=== PATIENT | female | born 1945 | race Caucasian/White ===

== ENCOUNTER 2017-03-10 20:13 | Emergency (ER) | payer MEDICARE ==
--- NOTE | 2017-03-10 20:35 | ED ---
HPI Chest Pain - HPI Summary HPI Summary: 72 yr old female with pressure in chest, 04/25, radiates into her neck and arms. She has had symptoms for six hours. She denies dizziness, palpitations, diaphoresis. She has had some SOB, and feel fatigued. No other complaints. - History of Current Complaint Chief Complaint: UCChestPain Time Seen by Provider: 03/10/17 20:18 - Allergy/Home Medications Allergies/Adverse Reactions: Allergies Allergy/AdvReac Type Severity Reaction Status Date / Time Codeine Allergy Unknown Verified 03/10/17 20:32 Reaction Details Erythromycin Allergy Unknown Verified 03/10/17 20:32 Reaction Details Meperidine [From Demerol HCl] Allergy Unknown Verified 03/10/17 20:32 Reaction Details Mercury Allergy Unknown Verified 03/10/17 20:32 Reaction Details Morphine Allergy Unknown Verified 03/10/17 20:32 Reaction Details Sulfa Antibiotics Allergy Unknown Verified 03/10/17 20:32 Reaction Details PMH/Surg Hx/FS Hx/Imm Hx Endocrine/Hematology History: Reports: Hx Thyroid Disease - hypo Denies: Hx Diabetes Cardiovascular History: Reports: Hx Hypertension Denies: Hx Congestive Heart Failure Comment Only: Other Cardiovascular Problems/Disorders - COUGH FOR 10 DAYS Respiratory History: Reports: Hx Asthma Denies: Hx Chronic Obstructive Pulmonary Disease (COPD) GI History: Denies: Hx Ulcer - Surgical History Surgery Procedure, Year, and Place: hysterectomy,miscarriage,overectomy,sinus, carpal tunnel,osteoperosis,asthma,fusion of 4,5,6 vert., fibromyalgia, breast reduction,rotator cuff repair Infectious Disease History: Denies: Hx Clostridium Difficile, Hx Hepatitis, Hx Human Immunodeficiency Virus (HIV), Hx of Known/Suspected MRSA, Hx Shingles, Hx Tuberculosis, Hx Known/ Suspected VRE, Hx Known/Suspected VRSA, History Other Infectious Disease - Social History Alcohol Use: None Substance Use Type: Reports: None Smoking Status (MU): Never Smoked Tobacco Review of Systems Constitutional: Negative Eyes: Negative ENT: Negative Positive: Chest Pain Positive: Shortness Of Breath All Other Systems Reviewed And Are Negative: Yes Physical Exam Triage Information Reviewed: Yes Vital Signs Reviewed: Yes Appearance: Positive: Well-Appearing, No Pain Distress Skin: Positive: Warm Head/Face: Positive: Normal Head/Face Inspection Eyes: Positive: Normal, EOMI ENT: Positive: Normal ENT inspection Neck: Positive: Supple Respiratory/Lung Sounds: Positive: Clear to Auscultation, Breath Sounds Present Cardiovascular: Positive: Normal, Tachycardia Abdomen Description: Positive: Nontender Musculoskeletal: Positive: Normal, Strength/ROM Intact Neurological: Positive: Normal, Sensory/Motor Intact, Alert, Oriented to Person Place, Time, CN Intact II-III Psychiatric: Positive: Normal Chest Pain Course/Dx - Course Course Of Treatment: Discussed with Dr Garcia at [facility] where the patient requests to be transferred. She accepts the patient. - Diagnoses Provider Diagnoses: Chest pain, SVT (supraventricular tachycardia) Discharge - Discharge Plan Condition: Fair Disposition: TRANS HIGHER LVL OF CARE FAC
[2017-03-10 20:41] VITALS: BP 117/71
== END 2017-03-10 21:00 | disposition short-term general hospital (02) ==
LOC: UCCORT 20:13
DX: R07.9 Chest pain, unspecified (principal); I47.1 Supraventricular tachycardia; Z88.5 Allergy status to narcotic agent; Z88.2 Allergy status to sulfonamides
CPT/HCPCS: 93005; 99213; G0463

== ENCOUNTER 2017-11-17 18:11 | Emergency (ER) | payer MEDICARE ==
[2017-11-17 20:01] VITALS: BP 151/91
--- NOTE | 2017-11-17 20:35 | UC ---
Cardiac HPI - HPI Summary HPI Summary: 2 days ago leaned over a sink and felt a sudden sharp pop in right sternal area- --Has had pain with inspiration, palpation and cough - History of Current Complaint Chief Complaint: UCGeneralIllness Stated Complaint: POSSIBLE RIB INJURY Time Seen by Provider: 11/17/17 19:54 Hx Obtained From: Patient Onset/Duration: Sudden Onset, Lasting Days - 2, Still Present Timing: Constant Initial Severity: Moderate Current Severity: Moderate Chest Pain Location: Lower Sternal - right Aggravating Factor(s): Deep Breaths Alleviating Factor(s): Other - tylenol Associated Signs & Symptoms: Positive: Negative - Allergy/Home Medications Allergies/Adverse Reactions: Allergies Allergy/AdvReac Type Severity Reaction Status Date / Time Codeine Allergy Unknown Verified 11/17/17 20:01 Reaction Details Erythromycin Allergy Unknown Verified 11/17/17 20:01 Reaction Details Meperidine [From Demerol HCl] Allergy Unknown Verified 11/17/17 20:01 Reaction Details Mercury Allergy Unknown Verified 11/17/17 20:01 Reaction Details Morphine Allergy Unknown Verified 11/17/17 20:01 Reaction Details Sulfa Antibiotics Allergy Unknown Verified 11/17/17 20:01 Reaction Details Home Medications: Home Medications Ibuprofen TAB* [Advil TAB*] 400 mg PO ONCE 11/17/17 [History Confirmed 11/17/17] PMH/Surg Hx/FS Hx/Imm Hx Previously Healthy: Yes Endocrine History: Hypothyroidism Cardiovascular History: Cardiac Disease GI/ History: Gastroesophageal Reflux - Surgical History Surgical History: Yes Surgery Procedure, Year, and Place: hysterectomy,miscarriage,overectomy,sinus, carpal tunnel,osteoperosis,asthma,fusion of 4,5,6 vert., fibromyalgia, breast reduction,rotator cuff repair - Family History Known Family History: Positive: None - Social History Occupation: Retired Lives: With Family Alcohol Use: None Substance Use Type: None Smoking Status (MU): Never Smoked Tobacco - Immunization History Most Recent Influenza Vaccination: [id number] Most Recent Pneumonia Vaccination: 2017 Review of Systems Constitutional: Negative Skin: Negative Eyes: Negative ENT: Negative Respiratory: Negative Cardiovascular: Chest Pain - with cough and deep breath Gastrointestinal: Negative Genitourinary: Negative Motor: Negative Neurovascular: Negative Musculoskeletal: Negative, Arthralgia Neurological: Negative Psychological: Negative Is Patient Immunocompromised?: No All Other Systems Reviewed And Are Negative: Yes Physical Exam Triage Information Reviewed: Yes Appearance: Well-Appearing, Well-Nourished, Pain Distress - mild Vital Signs: Initial Vital Signs Temp 97.9 F 11/17/17 19:54 Pulse 60 11/17/17 19:54 Resp 17 11/17/17 19:54 BP 151/91 11/17/17 19:54 Pulse Ox 97 11/17/17 19:54 Vital Signs Reviewed: Yes Eye Exam: Normal Eyes: Positive: Conjunctiva Clear ENT Exam: Normal ENT: Positive: Normal ENT inspection, Hearing grossly normal, Pharynx normal, Uvula midline. Negative: Nasal congestion, Nasal drainage, TMs normal, Tonsillar swelling, Tonsillar exudate, Trismus, Muffled voice, Hoarse voice, Sinus tenderness Dental Exam: Normal Neck exam: Normal Neck: Positive: Supple, Nontender, No Lymphadenopathy Respiratory Exam: Normal Respiratory: Positive: Chest non-tender, Lungs clear, Normal breath sounds, No respiratory distress, No accessory muscle use Cardiovascular Exam: Normal Cardiovascular: Positive: RRR, No Murmur, Pulses Normal, Brisk Capillary Refill Musculoskeletal Exam: Normal Musculoskeletal: Positive: Strength Intact, ROM Intact, No Edema Neurological Exam: Normal Neurological: Positive: Alert, Muscle Tone Normal Psychological Exam: Normal Skin Exam: Normal Diagnostics - Radiology No standard instances Xray Interpretation: No Acute Changes Radiology Interpretation Completed By: ED Physician, Radiologist - Assessment/Plan Course Of Treatment: compression, ice, pain med, follow with pcp - Clinical Impression Provider Diagnoses: Rib Contusion right sternal boarder, Hypertension in poor control Discharge - Discharge Plan Condition: Stable Disposition: HOME Prescriptions: Ibuprofen TAB* [Motrin TAB* 800 MG] 800 mg PO Q8H PRN #30 tab PRN Reason: Pain - Moderate Methocarbamol TAB* [Robaxin 500 MG TAB*] 500 mg PO TID PRN #30 tab PRN Reason: pain Patient Education Materials: Hypertension (ED), Rib Contusion (ED) Referrals: Non Staff,Doctor [Primary Care Provider] - Additional Instructions: Follow with primary care doctor for rib and blood pressure recheck
[2017-11-17] MEDS ORDERED: Acetaminophen TAB* 325 MG PO ONE (22:29)
--- NOTE | 2017-11-18 07:23 | RAD ---
INDICATION: Sternum trauma. TECHNIQUE: 2 views of the sternum were obtained. FINDINGS: The bones are in normal alignment. No fracture is seen. IMPRESSION: NO EVIDENCE FOR FRACTURE, IF THE PATIENT'S SYMPTOMS PERSIST RECOMMEND FOLLOW-UP IMAGING.
--- NOTE | 2017-11-18 07:27 | RAD ---
INDICATION: Right rib injury. COMPARISON: Comparison is made with a prior chest x-ray study from July 05, 2014. TECHNIQUE: 4 views of the right ribs and dual-energy PA views of the chest were obtained. FINDINGS: No acute fracture or significant focal osseous abnormality is seen. The heart is within normal limits in size. The lungs are clear. No pleural effusion or pneumothorax is seen. 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 IMPRESSION: NO EVIDENCE FOR ACUTE FRACTURE.
== END 2017-11-17 22:34 | disposition home or self-care (01) ==
LOC: UCCORT 18:11
DX: S20.219A Contusion of unspecified front wall of thorax, initial encounter (principal); X50.1XXA Overexertion from prolonged static or awkward postures, initial encounter; Y93.89 Activity, other specified; Y92.9 Unspecified place or not applicable; I10 Essential (primary) hypertension; E03.9 Hypothyroidism, unspecified; I51.9 Heart disease, unspecified; K21.9 Gastro-esophageal reflux disease without esophagitis; Z88.1 Allergy status to other antibiotic agents; Z88.5 Allergy status to narcotic agent; Z88.2 Allergy status to sulfonamides
CPT/HCPCS: 71120; 99212; A9270-GY; G0463

== ENCOUNTER 2019-11-14 11:13 | Emergency (ER) | payer MEDICARE ==
--- OUTSIDE RECORDS SUMMARY | 2019-11-14 11:23 | XMS REPORT | Continuity of Care Document ---
:1945 External Reference #:[id number] Author Name MC Valdez (transmitted by agent of provider April Bernal) Address [address] [place] [address] Care Team Providers Name Role Phone Feliciano Kraus M.D. 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 Onset: 11/26/2017 Uncomplicated moderate persistent asthma April Bernal M.D. Onset: 09/30 Allergic rhinitis due to animals April Bernal M.D. Onset: 09/30/2016 Exacerbation of asthma EMILY Morocho Onset: 10/26/2014 Acute upper respiratory infection of EMILY Morocho Onset: 10/26/2014 multiple sites Allergic rhinitis due to pollen Letty Dhaliwal M.D. Onset: 08/04/2013 Allergic rhinitis Letty Dhaliwal M.D. Onset: 08/04/2013 Allergic asthma without status asthmaticus Colby Villagran M.D. Onset: 2011 Social History Type Date Description Comments Sex Unknown Tobacco Use Start: Unknown Patient has never smoked Allergies, Adverse Reactions, Alerts Active Allergies Reaction Severity Comments Date Sulfa 06/16/2013 Erythromycin 06/16/2013 Morphine 08/04/2013 Codeine 08/04/2013 Demerol Nausea and Vomiting Mild 10/05/2014 Oxycodone hallucinations 09/30/2016 Percocet hallucinations 09/30/2016 Mercury bleeding 09/30/2016 Augmentin heart palpitations 10/16/2016 Amoxicillin vomitting and headache 09/13/2019 Medications Active Medications SIG Qnty Indications Ordering Date Provider Azithromycin take 2 tabs day 6tabs Mildred Mckeonmond, 09/13/2019 250mg one and one tab a [employer] Tablets day for next 4 days. per Patient she has taken and tolerated many times Amoxicillin take 1 tablet 14tabs Mildred Mckeonmond, 09/08/2019 500mg every 12 hours x [employer] Tablets 10 Prednisone take 2 tab a day 6tabs Mildred Mckeonmond, 09/08/2019 20mg Tablets for 3 days. Take [employer] with food- prefert take in morning Breo Ellipta 1 puff inhaled 28units J01.00 Mildred Rousseau, 09/08/2019 once daily [employer] 200-25mcg/Inh Aerosol Primidone Unknown 50mg Tablets Claritin 1 by mouth every Unknown 10mg Capsules day Vitamin D Unknown (Ergocalciferol) [id number] Capsules Mobic Unknown 15mg Tablets Albuterol Sulfate Unknown (2.5mg/3ML) 0.083% Nebulizer Bupropion HCL Unknown 100mg Tablets Vitamin E-400 one tab daily. Unknown 400Unit Capsules Senna Unknown Tablets Meloxicam 1 by mouth every Unknown 15mg Tablets day Spiriva Respimat 2 puffs once 4gm Mildred Rousseau, daily [employer] 1.25mcg/Act Aerosol Lipitor once a day Unknown 40mg Tablets Proair Respiclick 2 puffs every 4 1units Belén Dussing, hours as needed [employer] 108(90Base) mcg/Act for cough, wheeze Aerosol or shortness of breath Amitriptyline HCL once a day Unknown 50mg Tablets Omeprazole 1 by mouth every 90caps Unknown 10mg day Capsules DR Synthroid Unknown 112mcg Tablets Lyrica Unknown 100mg Capsules Medications Administered in Office Medication SIG Qnty Indications Ordering Provider Date Injection Allergy Injection 09/01/2019 Injection Injection Allergy Injection 07/07/2019 Injection Injection Allergy Injection 06/02/2019 Injection Injection Allergy Injection 05/12/2019 Injection Injection Allergy Injection 04/21/2019 Injection Injection Allergy Injection 04/14/2019 Injection Injection Allergy Injection 03/17/2019 Injection Injection Allergy Injection 03/03/2019 Injection Injection Allergy Injection 02/17/2019 Injection Injection Allergy Injection 02/10/2019 Injection Injection Allergy Injection 12/02/2018 Injection Injection Allergy Injection 11/11/2018 Injection Injection Allergy Injection 10/14/2018 Injection Injection Allergy Injection 09/16/2018 Injection Injection Allergy Injection 09/02/2018 Injection Injection Allergy Injection 08/12/2018 Injection Injection Allergy Injection 08/05/2018 Injection Injection Allergy Injection 07/22/2018 Injection Injection Allergy Injection 07/15/2018 Injection Injection Allergy Injection 07/01/2018 Injection Injection Allergy Injection 06/10/2018 Injection Injection Allergy Injection 05/20/2018 Injection Injection Allergy Injection 04/29/2018 Injection Injection Allergy Injection 04/01/2018 Injection Injection Allergy Injection 03/18/2018 Injection Injection Allergy Injection 03/04/2018 Injection Injection Allergy Injection 02/11/2018 Injection Injection Allergy Injection 01/28/2018 Injection Injection Allergy Injection 01/07/2018 Injection Injection Allergy Injection 12/24/2017 Injection Injection Allergy Injection 12/08/2017 Injection Injection Allergy Injection 11/26/2017 Injection Injection Allergy Injection 10/27/2017 Injection Injection Allergy Injection 10/15/2017 Injection Injection Allergy Injection 09/24/2017 Injection Injection Allergy Injection 09/03/2017 Injection Injection Allergy Injection 08/20/2017 Injection Injection Allergy Injection 07/23/2017 Injection Injection Allergy Injection 06/11/2017 Injection Injection Nicanor Cui M.D. 05/07/2017 Injection Injection Allergy Injection 05/07/2017 Injection Injection Allergy Injection 04/09/2017 Injection Injection Allergy Injection 03/19/2017 Injection Injection Allergy Injection 02/26/2017 Injection Injection Allergy Injection 02/12/2017 Injection Injection Allergy Injection 01/29/2017 Injection Injection Allergy Injection 01/08/2017 Injection Injection Allergy Injection 01/01/2017 Injection Injection Allergy Injection 12/11/2016 Injection Injection Allergy Injection 11/27/2016 Injection Injection Allergy Injection 11/13/2016 Injection Injection Allergy Injection 10/30/2016 Injection Injection Allergy Injection 10/16/2016 Injection Injection Allergy Injection 09/25/2016 Injection Injection Allergy Injection 09/11/2016 Injection Injection Allergy Injection 09/04/2016 Injection Injection Allergy Injection 08/28/2016 Injection Injection Allergy Injection 08/14/2016 Injection Injection Allergy Injection 07/31/2016 Injection Injection Allergy Injection 07/24/2016 Injection Injection Allergy Injection 07/17/2016 Injection Injection Allergy Injection 07/10/2016 Injection Injection Allergy Injection 07/03/2016 Injection Injection Allergy Injection 06/26/2016 Injection Injection Allergy Injection 06/19/2016 Injection Injection Allergy Injection 05/29/2016 Injection Injection Allergy Injection 05/15/2016 Injection Injection Allergy Injection 04/24/2016 Injection Injection Allergy Injection 04/17/2016 Injection Injection Allergy Injection 04/10/2016 Injection Injection Allergy Injection 04/03/2016 Injection Injection Allergy Injection 03/27/2016 Injection Injection Allergy Injection 03/20/2016 Injection Injection Allergy Injection 02/28/2016 Injection Injection Allergy Injection 02/21/2016 Injection Injection Allergy Injection 02/14/2016 Injection Injection Allergy Injection 01/31/2016 Injection Injection Allergy Injection 01/24/2016 Injection Injection Allergy Injection 01/17/2016 Injection Injection Allergy Injection 01/03/2016 Injection Injection Allergy Injection 12/20/2015 Injection Injection Allergy Injection 12/13/2015 Injection Injection Allergy Injection 12/06/2015 Injection Injection Allergy Injection 11/29/2015 Injection Injection Allergy Injection 11/20/2015 Injection Injection Allergy Injection 11/15/2015 Injection Injection Allergy Injection 11/01/2015 Injection Injection Allergy Injection 10/18/2015 Injection Injection Allergy Injection 10/04/2015 Injection Injection Allergy Injection 09/27/2015 Injection Injection Allergy Injection 09/13/2015 Injection Injection Allergy Injection 09/06/2015 Injection Injection Allergy Injection 08/30/2015 Injection Injection Allergy Injection 08/23/2015 Injection Injection Allergy Injection 08/16/2015 Injection Injection Allergy Injection 08/09/2015 Injection Injection Allergy Injection 08/02/2015 Injection Injection Allergy Injection 07/26/2015 Injection Injection Allergy Injection 07/19/2015 Injection Injection Allergy Injection 07/12/2015 Injection Injection Allergy Injection 06/28/2015 Injection Injection Allergy Injection 06/21/2015 Injection Injection Allergy Injection 06/14/2015 Injection Injection Allergy Injection 06/07/2015 Injection Injection Allergy Injection 05/31/2015 Injection Injection Allergy Injection 05/24/2015 Injection Injection Allergy Injection 05/17/2015 Injection Injection Allergy Injection 05/10/2015 Injection Injection Allergy Injection 05/03/2015 Injection Injection Allergy Injection 04/26/2015 Injection Injection Allergy Injection 04/19/2015 Injection Injection Allergy Injection 04/12/2015 Injection Injection Allergy Injection 04/05/2015 Injection Injection Allergy Injection 03/29/2015 Injection Injection Allergy Injection 03/22/2015 Injection Injection Allergy Injection 03/15/2015 Injection Injection Allergy Injection 03/08/2015 Injection Injection Allergy Injection 03/01/2015 Injection Injection Allergy Injection 02/22/2015 Injection Injection Allergy Injection 02/15/2015 Injection Injection Allergy Injection 02/08/2015 Injection Injection Allergy Injection 01/25/2015 Injection Injection Allergy Injection 01/04/2015 Injection Injection Allergy Injection 12/28/2014 Injection Injection Allergy Injection 12/21/2014 Injection Injection Allergy Injection 12/14/2014 Injection Injection Allergy Injection 12/07/2014 Injection Injection Allergy Injection 11/23/2014 Injection Injection Allergy Injection 10/19/2014 Injection Injection Allergy Injection 10/05/2014 Injection Injection Allergy Injection 09/21/2014 Injection Injection Allergy Injection 09/07/2014 Injection Injection Truman Luis A Ramirez 08/31/2014 Injection Injection Allergy Injection 08/31/2014 Injection Injection Truman Luis A Ramirez 08/24/2014 Injection Injection Allergy Injection 08/24/2014 Injection Injection Truman Luis A Ramirez 08/17/2014 Injection Injection Allergy Injection 08/17/2014 Injection Injection Truman Luis A Ramirez 08/10/2014 Injection Injection Allergy Injection 08/10/2014 Injection Injection Truman Luis A Ramirez 08/03/2014 Injection Injection Allergy Injection 08/03/2014 Injection Injection Truman Luis A Ramirez 07/27/2014 Injection Injection Allergy Injection 07/27/2014 Injection Injection Truman Luis A Ramirez 07/20/2014 Injection Injection Allergy Injection 07/20/2014 Injection Injection Truman Luis A Ramirez 06/15/2014 Injection Injection Allergy Injection 06/15/2014 Injection Injection Truman Luis A Ramirez 06/08/2014 Injection Injection Allergy Injection 06/08/2014 Injection Injection Truman Luis A Ramirez 06/01/2014 Injection Injection Allergy Injection 06/01/2014 Injection Injection Truman Luis A Ramirez 05/25/2014 Injection Injection Allergy Injection 05/25/2014 Injection Injection Truman Luis A Ramirez 05/18/2014 Injection Injection Allergy Injection 05/18/2014 Injection Injection Allergy Injection 05/18/2014 Injection Injection Truman Luis A Ramirez 05/11/2014 Injection Injection Allergy Injection 05/11/2014 Injection Injection Truman Luis A Ramirez 05/04/2014 Injection Injection Allergy Injection 05/04/2014 Injection Injection Allergy Injection 04/27/2014 Injection Injection Truman JamesLuis A jaffe 04/20/2014 Injection Injection Allergy Injection 04/20/2014 Injection Injection Truman Luis A Ramirez 04/13/2014 Injection Injection Allergy Injection 04/13/2014 Injection Injection Truman Luis A Ramirez 04/06/2014 Injection Injection Allergy Injection 04/06/2014 Injection Injection Truman JamesLuis A jaffe 03/30/2014 Injection Injection Allergy Injection 03/30/2014 Injection Injection Truman Luis A Ramirez 03/21/2014 Injection Injection Allergy Injection 03/21/2014 Injection Injection Truman Luis A Ramirez 03/09/2014 Injection Injection Allergy Injection 03/09/2014 Injection Injection Truman Luis A Ramirez 03/02/2014 Injection Injection Allergy Injection 03/02/2014 Injection Injection Allergy Injection 02/23/2014 Injection Injection Truman Luis A Ramirez 02/16/2014 Injection Injection Allergy Injection 02/16/2014 Injection Injection Truman Luis A Ramirez 02/09/2014 Injection Injection Allergy Injection 02/09/2014 Injection Injection Truman Luis A Ramirez 02/02/2014 Injection Injection Allergy Injection 02/02/2014 Injection Injection Allergy Injection 01/12/2014 Injection Injection Truman Luis A Ramirez 12/29/2013 Injection Injection Allergy Injection 12/29/2013 Injection Injection Truman Luis A Ramirez 12/08/2013 Injection Injection Allergy Injection 12/08/2013 Injection Injection Truman Luis A Ramirez 11/24/2013 Injection Injection Allergy Injection 11/24/2013 Injection Injection Truman Luis A Ramirez 11/03/2013 Injection Injection Allergy Injection 11/03/2013 Injection Injection Truman Luis A Ramirez 10/27/2013 Injection Injection Allergy Injection 10/27/2013 Injection Injection Truman Luis A Ramirez 10/20/2013 Injection Injection Allergy Injection 10/20/2013 Injection Injection Truman Luis A Ramirez 10/11/2013 Injection Injection Allergy Injection 10/11/2013 Injection Injection Truman Luis A Ramirez 09/22/2013 Injection Injection Allergy Injection 09/22/2013 Injection Injection Truman Luis A Ramirez 09/08/2013 Injection Injection Allergy Injection 09/08/2013 Injection Injection Truman Luis A Ramirez 08/25/2013 Injection Injection Allergy Injection 08/25/2013 Injection Injection Truman Ramirez M.D. 08/18/2013 Injection Injection Allergy Injection 08/18/2013 Injection Injection Truman Luis A Ramirez 08/04/2013 Injection Injection Allergy Injection 08/04/2013 Injection Injection Allergy Injection 07/28/2013 Injection Injection Truman Ramirez M.D. 06/09/2013 Injection Injection Allergy Injection 06/09/2013 Injection Injection Truman Luis A Ramirez 06/02/2013 Injection Injection Allergy Injection 06/02/2013 Injection Injection Truman Ramirez M.D. 05/26/2013 Injection Injection Allergy Injection 05/26/2013 Injection Injection Truman Ramirez M.D. 05/17/2013 Injection Injection Allergy Injection 05/17/2013 Injection Injection Truman Luis A Ramirez 05/12/2013 Injection Injection Allergy Injection 05/12/2013 Injection Injection Truman Ramirez M.D. 05/05/2013 Injection Injection Allergy Injection 05/05/2013 Injection Injection Truman Ramirez M.D. 04/28/2013 Injection Injection Allergy Injection 04/28/2013 Injection Injection Truman Ramirez M.D. 04/21/2013 Injection Injection Allergy Injection 04/21/2013 Injection Injection Truman Ramirez M.D. 04/14/2013 Injection Injection Allergy Injection 04/14/2013 Injection Injection Truman Luis A Ramirez 04/07/2013 Injection Injection Allergy Injection 04/07/2013 Injection Injection Truman Luis A Ramirez 03/31/2013 Injection Injection Allergy Injection 03/31/2013 Injection Injection Truman Luis A Ramirez 03/24/2013 Injection Injection Allergy Injection 03/24/2013 Injection Injection Truman Ramirez M.D. 03/17/2013 Injection Injection Allergy Injection 03/17/2013 Injection Injection Truman Luis A Ramirez 03/10/2013 Injection Injection Allergy Injection 03/10/2013 Injection Injection Truman James, M.DRadha 03/03/2013 Injection Injection Allergy Injection 03/03/2013 Injection Injection Truman James, M.DRadha 02/24/2013 Injection Injection Allergy Injection 02/24/2013 Injection Injection Truman James, M.DRadha 02/03/2013 Injection Injection Allergy Injection 02/03/2013 Injection Injection Truman James, M.DRadha 01/20/2013 Injection Injection Truman James, M.DRadha 01/13/2013 Injection Injection Truman James, M.DRadha 01/06/2013 Injection Injection Truman James, M.DRadha 12/30/2012 Injection Injection Truman James, M.DRadha 12/23/2012 Injection Injection Truman James, M.DRadha 12/16/2012 Injection Injection Truman James, M.DRadha 12/09/2012 Injection Injection Truman James, Maureen.Praveen 12/02/2012 Injection Injection Truman James, Maureen.Praveen 11/25/2012 Injection Injection Truman James, M.DRadha 11/18/2012 Injection Injection Truman James, M.DRadha 11/04/2012 Injection Injection Truman James, Luis A 10/21/2012 Injection Injection Truman James, M.DRadha 10/14/2012 Injection Injection Truman James, M.DRadha 09/30/2012 Injection Injection Truman Jaems, Maureen.Praveen 09/23/2012 Injection Injection Truman James, M.DRadha 08/26/2012 Injection Injection Truman James, M.DRadha 08/19/2012 Injection Injection Truman James, M.DRadha 08/12/2012 Injection Injection Truman James, M.DRadha 08/05/2012 Injection Injection Truman James, M.DRadha 07/29/2012 Injection Injection Truman James, M.DRadha 07/22/2012 Injection Injection Truman James, M.DRadha 07/15/2012 Injection Injection Truman James, M.DRadha 07/08/2012 Injection Injection Truman James, M.DRadha 07/01/2012 Injection Injection Truman James, M.D. 06/24/2012 Injection Injection Truman James, M.D. 06/10/2012 Injection Injection Truman James, M.D. 05/20/2012 Injection Injection Truman James, M.D. 05/06/2012 Injection Injection Truman James, M.DRadha 04/29/2012 Injection Injection Truman James, M.DRadha 04/22/2012 Injection Injection Truman James, M.DRadha 04/15/2012 Injection Injection Truman James, M.DRadha 04/08/2012 Injection Injection Truman James, M.DRadha 04/01/2012 Injection Injection Truman James, M.DRadha 03/25/2012 Injection Injection Truman James, M.DRadha 03/18/2012 Injection Injection Truman James, M.DRadha 03/11/2012 Injection Injection Truman James, M.DRadha 03/04/2012 Injection Injection Truman James, M.DRadha 02/19/2012 Injection Injection Truman James, M.D. 02/12/2012 Injection Injection Truman James, M.DRadha 01/29/2012 Injection Injection Truman James, M.DRadha 01/22/2012 Injection Injection Truman James, M.DRadha 01/13/2012 Injection Injection Truman James, M.DRadha 01/08/2012 Injection Injection Truman James, M.D. 01/01/2012 Injection Injection Truman James, M.D. 12/11/2011 Injection Injection Truman James, M.D. 11/27/2011 Injection Injection Truman James, M.D. 11/20/2011 Injection Injection Truman James, M.D. 11/13/2011 Injection Injection Truman James, M.D. 10/16/2011 Injection Injection Truman James, M.D. 10/02/2011 Injection Injection Truman James, M.DRadha 09/18/2011 Injection Injection Truman James, M.D. 09/11/2011 Injection Injection Truman James, M.D. 08/28/2011 Injection Injection Truman James, M.D. 08/21/2011 Injection Injection Truman James, M.DRadha 07/31/2011 Injection Injection Truman James, M.DRadha 07/24/2011 Injection Injection Truman James, M.DRadha 07/17/2011 Injection Injection Truman James, M.DRadha 07/10/2011 Injection Injection Truman James, M.DRadha 07/03/2011 Injection Injection Truman James, M.DRadha 06/26/2011 Injection Injection Truman James, M.DRadha 06/19/2011 Injection Injection Truman James, M.DRadha 06/12/2011 Injection Celestone/Cortisone Truman James, M.DRadha 05/27/2011 [id number] 1 cc Injection Injection Truman James, M.DRadha 05/13/2011 Injection Injection Truman James, M.DRadha 05/08/2011 Injection Injection Truman James, HarshadDRadha 04/29/2011 Injection Celestone/Cortisone Truman James, M.DRadha 04/17/2011 [id number] 1 cc Injection Injection Truman James, M.DRadha 04/03/2011 Injection Injection Truman James, Maureen.DRadha 03/27/2011 Injection Injection Truman James, HarshadDRadha 03/20/2011 Injection Injection Truman James, M.DRadha 03/13/2011 Injection Injection Truman James, M.DRadha 03/06/2011 Injection Injection Truman James, M.DRadha 02/27/2011 Injection Injection Truman James, M.DRadha 02/20/2011 Injection Injection Truman James, M.DRadha 02/06/2011 Injection Injection Truman James, M.DRadha 01/23/2011 Injection Injection Truman James, M.DRadha 12/26/2010 Injection Injection Truman James, M.DRadha 12/05/2010 Injection Injection Truman James, M.DRadha 11/21/2010 Injection Injection Truman James, M.DRadha 10/24/2010 Injection Injection Truman James, M.DRadha 10/03/2010 Injection Injection Truman James, M.DRadha 09/19/2010 Injection Injection Truman James, M.DRadha 09/05/2010 Injection Injection Truman James, M.DRadha 08/29/2010 Injection Injection Truman James, M.DRadha 08/15/2010 Injection Injection Truman James, M.DRadha 08/08/2010 Injection Injection Truman James, M.DRadha 08/01/2010 Injection Injection Truman James, M.DRadha 07/18/2010 Injection Injection Truman James, M.DRadha 07/11/2010 Injection Injection Truman James, M.DRadha 07/04/2010 Injection Injection Truman James, M.DRadha 06/27/2010 Injection Injection Truman James, M.DRadha 06/20/2010 Injection Injection Truman James, M.DRadha 06/13/2010 Injection Injection Truman James, M.DRadha 06/06/2010 Injection Injection Truman James, M.DRadha 05/30/2010 Injection Injection Truman James, M.DRadha 05/14/2010 Injection Injection Truman James, M.DRadha 05/09/2010 Injection Injection Truman James, M.DRadha 05/02/2010 Injection Injection Truman James, M.DRadha 04/25/2010 Injection Injection Truman James, M.DRadha 04/18/2010 Injection Injection Truman James, M.DRadha 04/04/2010 Injection Injection Truman James, M.DRadha 03/28/2010 Injection Injection Truman James, M.DRadha 03/21/2010 Injection Injection Truman James, M.DRadha 03/14/2010 Injection Injection Truman James, M.DRadha 02/28/2010 Injection Injection Truman James, M.DRadha 02/21/2010 Injection Injection Truman James, M.DRadha 02/14/2010 Injection Injection Truman James, M.DRadha 02/07/2010 Injection Injection Truman James, M.DRadha 01/31/2010 Injection Injection Truman James, M.DRadha 01/24/2010 Injection Injection Truman James, M.DRadha 01/03/2010 Injection Injection Truman James, HarshadDRadha 12/20/2009 Injection Injection Osman Monae M.D. 12/06/2009 Injection Injection Osman Monae M.D. 11/29/2009 Injection Injection Truman James, Luis A 11/22/2009 Injection Injection Truman James, M.DRahda 10/18/2009 Injection Injection Truman James, HarshadDRadha 10/09/2009 Injection Injection Truman James, Maureen.DRadha 09/27/2009 Injection Injection Truman James, M.DRadha 09/13/2009 Injection Injection Truman James, M.DRadha 09/06/2009 Injection Injection Truman James, M.DRadha 08/30/2009 Injection Injection Truman James, M.DRadha 08/23/2009 Injection Injection Truman James, M.DRadha 08/14/2009 Injection Injection Truman James, HarshadDRadha 08/09/2009 Injection Injection Truman James, Maureen.DRadha 08/02/2009 Injection Injection Truman James, M.DRadha 07/26/2009 Injection Injection Truman James, M.DRadha 07/19/2009 Injection Injection Truman James, M.DRadha 07/12/2009 Injection Injection Truman James, M.DRadha 07/05/2009 Injection Injection Truman James, M.DRadha 07/03/2009 Injection Injection Truman James, M.DRadha 06/28/2009 Injection Injection Truman James, M.DRadha 06/21/2009 Injection Injection Truman James, M.DRadha 05/29/2009 Injection Injection Truman James, M.DRadha 05/10/2009 Injection Injection Truman James, M.DRdaha 04/19/2009 Injection Injection Truman James, M.DRadha 04/05/2009 Injection Injection Truman James, M.DRadha 03/22/2009 Injection Injection Truman James, M.DRadha 03/08/2009 Injection Injection Truman James, M.DRadha 02/13/2009 Injection Injection Truman James, M.DRadha 01/30/2009 Injection Injection Truman James, M.DRadha 01/09/2009 Injection Injection Truman James, M.DRadha 12/26/2008 Injection Injection Truman James, M.DRadha 12/12/2008 Injection Injection Truman James, M.DRadha 11/28/2008 Injection Injection Truman James, M.DRadha 11/14/2008 Injection Injection Truman James, M.DRadha 10/17/2008 Injection Injection Truman James, M.DRadha 10/05/2008 Injection Injection Truman James, M.DRadha 09/19/2008 Injection Injection Truman James, M.DRadha 09/05/2008 Injection Injection Truman James, M.DRadha 08/22/2008 Injection Injection Truman James, M.DRadha 08/08/2008 Injection Injection Truman James, M.DRadha 07/25/2008 Injection Injection Truman James, M.DRadha 07/11/2008 Injection Injection Truman James, M.DRadha 06/29/2008 Injection Injection Truman James, M.DRadha 06/15/2008 Injection Injection Truman James, M.DRadha 06/01/2008 Injection Injection Truman James, M.DRadha 05/16/2008 Injection Injection Truman James, M.DRadha 05/04/2008 Injection Injection Truman James, M.DRadha 04/20/2008 Injection Injection Truman James, M.DRadha 03/30/2008 Injection Injection Truman James, M.DRadha 03/16/2008 Injection Injection Truman James, M.DRadha 02/22/2008 Injection Injection Truman James, M.DRadha 01/13/2008 Injection Injection Truman James, M.DRadha 12/28/2007 Injection Injection Truman James, M.DRadha 11/11/2007 Injection Injection Truman James, M.DRadha 10/21/2007 Injection Injection Truman James, M.DRadha 09/23/2007 Injection Injection Truman James, M.DRadha 08/26/2007 Injection Injection Truman James, M.DRadha 08/12/2007 Injection Injection Truman James, M.DRadha 07/29/2007 Injection Injection Truman James, M.DRadha 07/13/2007 Injection Injection Truman James, M.DRadha 07/01/2007 Injection Injection Truman James, M.DRadha 06/10/2007 Injection Injection Truman James, M.DRadha 05/27/2007 Injection Injection Truman James, M.DRadha 05/13/2007 Injection Injection Truman James, Maureen.DRadha 04/22/2007 Injection Injection Truman James, Maureen.DRadha 04/08/2007 Injection Injection Truman James, Maureen.DRadha 03/18/2007 Injection Injection Truman James, M.DRadha 03/02/2007 Injection Injection Truman James, M.DRadha 02/11/2007 Injection Injection Truman James, M.DRadha 01/12/2007 Injection Injection Truman James, Maureen.DRadha 12/29/2006 Injection Injection Truman James, HarshadDRadha 12/15/2006 Injection Injection Truman James, Maureen.DRadha 12/03/2006 Injection Injection Truman James, Maureen.DRadha 11/19/2006 Injection Injection Truman James, Maureen.DRadha 11/03/2006 Injection Injection Truman James, HarshadDRadha 10/22/2006 Injection Injection Truman James, Maureen.DRadha 10/06/2006 Injection Injection Truman James, Maureen.DRadha 09/24/2006 Injection Injection Truman James, Maureen.DRadha 09/15/2006 Injection Injection Truman James, Maureen.DRadha 08/27/2006 Injection Injection Truman James, M.DRadha 08/13/2006 Injection Injection Truman James, M.DRadha 07/30/2006 Injection Injection Truman James, M.DRadha 07/14/2006 Injection Injection Truman James, M.DRadha 07/02/2006 Injection Injection Truman James, M.DRadha 06/04/2006 Injection Injection Truman James, M.DRadha 05/26/2006 Injection Injection Truman James, HarshadDRadha 05/07/2006 Injection Injection Truman James, M.DRadha 04/21/2006 Injection Injection Truman James, M.DRadha 04/09/2006 Injection Injection Truman James, M.DRadha 03/31/2006 Injection Injection Truman James, M.DRadha 03/12/2006 Injection Injection Truman James, M.DRadha 03/03/2006 Injection Injection Truman James, M.DRadha 02/17/2006 Injection Injection Truman James, M.DRadha 02/12/2006 Injection Injection Truman James, M.DRadha 12/09/2005 Injection Injection Truman James, M.DRadha 11/20/2005 Injection Injection Truman James, M.DRadha 11/11/2005 Injection Injection Truman James, M.DRadha 11/04/2005 Injection Injection Truman James, M.DRadha 10/28/2005 Injection Injection Truman James, M.DRadha 10/23/2005 Injection Injection Truman James, M.DRadha 10/14/2005 Injection Injection Truman James, M.DRadha 10/07/2005 Injection Injection Truman James, M.DRadha 10/02/2005 Injection Injection Truman James, M.DRadha 09/25/2005 Injection Injection Truman James, M.DRadha 09/16/2005 Injection Injection Truman James, M.DRadha 09/11/2005 Injection Injection Truman James, M.DRadha 09/04/2005 Injection Injection Truman James, M.DRadha 08/28/2005 Injection Injection Truman James, M.DRadha 08/19/2005 Injection Injection Truman James, M.DRadha 08/12/2005 Injection Injection Truman James, M.DRadha 08/05/2005 Injection Injection Truman James, M.DRadha 07/29/2005 Injection Injection Truman James, M.DRadha 07/17/2005 Injection Injection Truman James, M.DRadha 03/27/2005 Injection Injection Truman James, M.DRadha 03/04/2005 Injection Injection Truman James, M.DRadha 12/03/2004 Injection Injection Truman James, M.DRadha 11/14/2004 Injection Injection Truman James, M.DRadha 11/05/2004 Injection Injection Truman James, M.DRadha 10/29/2004 Injection Injection Truman James, M.DRadha 10/17/2004 Injection Injection Truman James, M.D. 09/26/2004 Injection Injection Truman James, M.DRadha 09/03/2004 Injection Injection Truman James, M.DRadha 08/13/2004 Injection Injection Truman James, M.DRadha 07/23/2004 Injection Injection Truman James, M.DRadha 07/02/2004 Injection Injection Truman James, M.DRadha 06/06/2004 Injection Injection Truman James, M.DRadha 05/21/2004 Injection Injection Truman James, M.DRadha 05/14/2004 Injection Injection Truman James, M.DRadha 04/30/2004 Injection Injection Truman James, M.DRadha 04/11/2004 Injection Injection Truman James, M.DRadha 04/04/2004 Injection Injection Truman James, M.DRadha 03/14/2004 Injection Injection Truman James, M.DRadha 03/07/2004 Injection Injection Truman James, M.DRadha 02/29/2004 Injection Injection Truman James, M.DRadha 02/22/2004 Injection Injection Truman James, M.DRadha 10/31/2003 Injection Injection Truman James, M.DRadha 10/24/2003 Injection Injection Truman James, M.DRadha 10/10/2003 Injection Injection Truman James, M.DRadha 10/03/2003 Injection Injection Truman James, M.DRadha 09/19/2003 Injection Injection Truman James, M.DRadha 09/12/2003 Injection Injection Truman James, M.DRadha 09/05/2003 Injection Injection Truman James, M.DRadha 08/15/2003 Injection Injection Truman James, M.DRadha 08/08/2003 Injection Injection Truman James, M.DRadha 08/01/2003 Injection Injection Truman James, M.DRadha 07/25/2003 Injection Injection Truman James, M.DRadha 07/13/2003 Injection Injection Truman James, M.D. 06/29/2003 Injection Injection Truman Ramirez M.D. 06/22/2003 Injection Injection Truman Ramirez M.D. 06/15/2003 Injection Injection Truman Ramirez M.D. 06/13/2003 Injection Immunizations CPT Code Status Date Vaccine Lot # 14328 Given 09/15/2014 Influenza Vaccine 94414 Given Unknown Pneumococcal Vaccine 67089 Given Unknown Pneumococcal Vaccine 42439 Given Unknown Pneumococcal Vaccine 26391 Given Unknown Influenza Vaccine 31647 Given Unknown Influenza Vaccine 10707 Given Unknown Influenza Vaccine Vital Signs Date Vital Result Comment 09/08/2019 11:21am Height 60 inches 5'0" Weight 169.00 lb Weight 76.658 kg Respiratory Rate 20 /min Heart Rate 85 /min O2 % BldC Oximetry 92 % BP Systolic 161 mmHg BP Diastolic 94 mmHg Asthma Control Test 15 Fractional Exhaled Nitric Oxide 16 BMI (Body Mass Index) 33.0 kg/m2 04/21/2019 11:00am Height 60 inches 5'0" Weight 170.00 lb Weight 77.112 kg Respiratory Rate 20 /min Heart Rate 83 /min O2 % BldC Oximetry 94 % BP Systolic 133 mmHg BP Diastolic 85 mmHg Asthma Control Test 22 BMI (Body Mass Index) 33.2 kg/m2 Results Description No Information Available Procedures Date Code Description Status 09/08/2019 78570 Ippb Completed 09/01/2019 23308 Injection Completed 07/07/2019 46311 Injection Completed 06/02/2019 72904 Injection Completed 05/12/2019 61541 Injection Completed 04/21/2019 36218 Injection Completed 04/21/2019 19351 Pre PFT Completed 04/14/2019 58290 Injection Completed 03/17/2019 17632 Injection Completed Medical Devices Description No Information Available Encounters Type Date Location Provider Dx Diagnosis Office Visit 09/08/2019 [facility] Mildred Rousseau J01.00 Acute maxillary 11:40a [employer] sinusitis, unspecified R05 Cough J45.41 Moderate persistent asthma with (acute) exacerbation Office Visit 04/21/2019 11:00a [facility] Mildred Rousseau J30.1 Allergic [employer] rhinitis due to pollen J30.81 Allergic rhinitis due to animal (cat) (dog) hair and dander J45.40 Moderate persistent asthma, uncomplicated Assessments Date Code Description Provider 09/08/2019 J01.00 Acute maxillary sinusitis, unspecified PABLO Valdez 09/08/2019 R05 Cough [facility] 09/08/2019 J45.41 Moderate persistent asthma with (acute) MAREN Valdez exacerbation 09/01/2019 J30.1 Allergic rhinitis due to pollen Nicanor Cui M.D. 09/01/2019 J30.1 Allergic rhinitis due to pollen Allergy Injection 09/01/2019 J30.2 Other seasonal allergic rhinitis Nicanor Cui M.D. 09/01/2019 J30.2 Other seasonal allergic rhinitis Allergy Injection 09/01/2019 J30.81 Allergic rhinitis due to animal (cat) Nicanor Cui M.D. (dog) hair and dander 09/01/2019 J30.81 Allergic rhinitis due to animal (cat) Allergy Injection (dog) hair and dander 09/01/2019 J30.89 Other allergic rhinitis Nicanor Cui M.D. 09/01/2019 J30.89 Other allergic rhinitis Allergy Injection 07/07/2019 J30.1 Allergic rhinitis due to pollen Nicanor Cui M.D. 07/07/2019 J30.1 Allergic rhinitis due to pollen Allergy Injection 07/07/2019 J30.2 Other seasonal allergic rhinitis Nicanor Cui M.D. 07/07/2019 J30.2 Other seasonal allergic rhinitis Allergy Injection 07/07/2019 J30.81 Allergic rhinitis due to animal (cat) Nicanor Cui M.D. (dog) hair and dander 07/07/2019 J30.81 Allergic rhinitis due to animal (cat) Allergy Injection (dog) hair and dander 07/07/2019 J30.89 Other allergic rhinitis Nicanor Cui M.D. 07/07/2019 J30.89 Other allergic rhinitis Allergy Injection 06/02/2019 J30.1 Allergic rhinitis due to pollen Nicanor Cui M.D. 06/02/2019 J30.1 Allergic rhinitis due to pollen Allergy Injection 06/02/2019 J30.2 Other seasonal allergic rhinitis Nicanor Cui M.D. 06/02/2019 J30.2 Other seasonal allergic rhinitis Allergy Injection 06/02/2019 J30.81 Allergic rhinitis due to animal (cat) Nicanor Cui M.D. (dog) hair and dander 06/02/2019 J30.81 Allergic rhinitis due to animal (cat) Allergy Injection (dog) hair and dander 06/02/2019 J30.89 Other allergic rhinitis Nicanor Cui M.D. 06/02/2019 J30.89 Other allergic rhinitis Allergy Injection 05/12/2019 J30.1 Allergic rhinitis due to pollen Nicanor Cui M.D. 05/12/2019 J30.1 Allergic rhinitis due to pollen Allergy Injection 05/12/2019 J30.2 Other seasonal allergic rhinitis Nicanor Cui M.D. 05/12/2019 J30.2 Other seasonal allergic rhinitis Allergy Injection 05/12/2019 J30.81 Allergic rhinitis due to animal (cat) Nicanor Cui M.D. (dog) hair and dander 05/12/2019 J30.81 Allergic rhinitis due to animal (cat) Allergy Injection (dog) hair and dander 05/12/2019 J30.89 Other allergic rhinitis Nicanor Cui M.D. 05/12/2019 J30.89 Other allergic rhinitis Allergy Injection 04/21/2019 J30.1 Allergic rhinitis due to pollen Nicanor Cui M.D. 04/21/2019 J30.1 Allergic rhinitis due to pollen Nicanor Cui M.D. 04/21/2019 J30.2 Other seasonal allergic rhinitis Nicanor Cui M.D. 04/21/2019 J30.1 Allergic rhinitis due to pollen [facility] 04/21/2019 J30.81 Allergic rhinitis due to animal (cat) Nicanor Cui M.D. (dog) hair and dander 04/21/2019 J30.1 Allergic rhinitis due to pollen Allergy Injection 04/21/2019 J30.89 Other allergic rhinitis Nicanor Cui M.D. 04/21/2019 J30.81 Allergic rhinitis due to animal (cat) Nicanor Cui M.D. (dog) hair and dander 04/21/2019 J30.81 Allergic rhinitis due to animal (cat) [facility] Valdez (dog) hair and dander 04/21/2019 J30.2 Other seasonal allergic rhinitis Allergy Injection 04/21/2019 J45.40 Moderate persistent asthma, uncomplicated Nicanor Cui M.D. 04/21/2019 J45.40 Moderate persistent asthma, uncomplicated [facility] 04/21/2019 J30.81 Allergic rhinitis due to animal (cat) Allergy Injection (dog) hair and dander 04/21/2019 J30.89 Other allergic rhinitis Allergy Injection 04/14/2019 J30.1 Allergic rhinitis due to pollen Nicanor Cui M.D. 04/14/2019 J30.1 Allergic rhinitis due to pollen Allergy Injection 04/14/2019 J30.2 Other seasonal allergic rhinitis Nicanor Cui M.D. 04/14/2019 J30.2 Other seasonal allergic rhinitis Allergy Injection 04/14/2019 J30.81 Allergic rhinitis due to animal (cat) Nicanor Cui M.D. (dog) hair and dander 04/14/2019 J30.81 Allergic rhinitis due to animal (cat) Allergy Injection (dog) hair and dander 04/14/2019 J30.89 Other allergic rhinitis Nicanor Cui M.D. 04/14/2019 J30.89 Other allergic rhinitis Allergy Injection 03/17/2019 J30.1 Allergic rhinitis due to pollen Nicanor Cui M.D. 03/17/2019 J30.1 Allergic rhinitis due to pollen Allergy Injection 03/17/2019 J30.2 Other seasonal allergic rhinitis Nicanor Cui M.D. 03/17/2019 J30.2 Other seasonal allergic rhinitis Allergy Injection 03/17/2019 J30.81 Allergic rhinitis due to animal (cat) Nicanor Cui M.D. (dog) hair and dander 03/17/2019 J30.81 Allergic rhinitis due to animal (cat) Allergy Injection (dog) hair and dander 03/17/2019 J30.89 Other allergic rhinitis Nicanor Cui M.D. 03/17/2019 J30.89 Other allergic rhinitis Allergy Injection Plan of Treatment Future Appointment(s):09/29/2019 11:40 am - [facility] Valdez at [facility] Functional Status Description No Information Available Mental Status Description No Information Available Referrals Description No Information Available
--- OUTSIDE RECORDS SUMMARY | 2019-11-14 11:23 | XMS REPORT | Continuity of Care Document ---
:1945 External Reference #:[id number] Author Name MC Valdez (transmitted by agent of provider Colby Villagran) Address [address] [place] [address] Care Team Providers Name Role Phone Feliciano Kraus M.D. 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 Unknown 400Unit Capsules Senna Unknown Tablets Meloxicam 1 by mouth every Unknown 15mg Tablets day Spiriva Respimat 2 puffs once 4gm Mildred Rousseau, daily HOT ROLL LAMINATOR-C 1.25mcg/Act Aerosol Lipitor once a day Unknown 40mg Tablets Proair Respiclick 2 puffs every 4 1units [facility], hours as needed HOT ROLL LAMINATOR-C 108(90Base) mcg/Act for cough, wheeze Aerosol or shortness of breath Amitriptyline HCL once a day Unknown 50mg Tablets Omeprazole 1 by mouth every 90caps Unknown 10mg day Capsules DR Synthroid ocne a day Unknown 112mcg Tablets Lyrica once a day Unknown 100mg Capsules Medications Administered in Office Medication SIG Qnty Indications Ordering Provider Date Injection Allergy Injection 09/29/2019 Injection Injection Allergy Injection 09/01/2019 Injection Injection Allergy [...] Injection Injection Allergy Injection 08/24/2014 Injection Injection Trmuan JamesLuis A jaffe 08/17/2014 Injection Injection Allergy Injection 08/17/2014 Injection [...] Injection Allergy Injection 05/25/2014 Injection Injection Truman JamesLuis A jaffe 05/18/2014 Injection Injection Allergy Injection 05/18/2014 Injection Injection Allergy Injection 05/18/2014 Injection Injection Truman Luis A Ramriez 05/11/2014 Injection Injection Allergy Injection 05/11/2014 Injection Injection Truman JamesLuis A jaffe 05/04/2014 Injection Injection Allergy Injection 05/04/2014 Injection Injection Allergy Injection 04/27/2014 Injection Injection Truman Luis A Ramirez 04/20/2014 Injection Injection Allergy Injection 04/20/2014 Injection Injection Truman Luis A Ramirez 04/13/2014 Injection Injection Allergy Injection 04/13/2014 Injection Injection Truman Luis A Ramirez 04/06/2014 Injection Injection Allergy Injection 04/06/2014 Injection Injection Truman Luis A Ramirez 03/30/2014 Injection Injection Allergy Injection 03/30/2014 Injection [...] Injection Allergy Injection 11/24/2013 Injection Injection Truman Ramirez M.D. 11/03/2013 Injection Injection Allergy Injection 11/03/2013 Injection Injection Truman Ramirez M.D. 10/27/2013 Injection Injection Allergy Injection 10/27/2013 Injection Injection Truman Luis A Ramirez 10/20/2013 Injection Injection Allergy Injection 10/20/2013 Injection Injection Truman Luis A Ramirez 10/11/2013 Injection Injection Allergy Injection 10/11/2013 Injection Injection Truman Ramirez M.D. 09/22/2013 Injection Injection Allergy Injection 09/22/2013 Injection Injection Trmuan Ramirez M.D. 09/08/2013 Injection Injection Allergy Injection 09/08/2013 Injection Injection Truman Ramirez M.D. 08/25/2013 Injection Injection Allergy Injection 08/25/2013 Injection Injection Truman Ramirez M.D. 08/18/2013 Injection Injection Allergy Injection 08/18/2013 Injection Injection Truman Luis A Ramirez 08/04/2013 Injection Injection Allergy Injection 08/04/2013 Injection Injection Allergy Injection 07/28/2013 Injection Injection Truman Luis A Ramirez 06/09/2013 Injection Injection Allergy Injection 06/09/2013 Injection Injection Truman Luis A Ramirez 06/02/2013 Injection Injection Allergy Injection 06/02/2013 Injection Injection Truman Luis A Ramirez 05/26/2013 Injection Injection Allergy Injection 05/26/2013 Injection Injection Truman Luis A Ramirez 05/17/2013 Injection Injection Allergy Injection 05/17/2013 Injection Injection Truman Luis A Ramirez 05/12/2013 Injection Injection Allergy Injection 05/12/2013 Injection Injection Truman Ramirez M.D. 05/05/2013 Injection Injection Allergy Injection 05/05/2013 Injection Injection Truman Ramirez M.D. 04/28/2013 Injection Injection Allergy Injection 04/28/2013 Injection Injection Truman Luis A Ramirez 04/21/2013 Injection Injection Allergy Injection 04/21/2013 Injection Injection Truman Ramirez M.D. 04/14/2013 Injection Injection Allergy Injection 04/14/2013 Injection Injection Truman Luis A Ramirez 04/07/2013 Injection Injection Allergy Injection 04/07/2013 Injection Injection Truman Ramirez M.D. 03/31/2013 Injection Injection Allergy Injection 03/31/2013 Injection Injection Truman Ramirez M.D. 03/24/2013 Injection Injection Allergy Injection 03/24/2013 Injection Injection Truman Luis A Ramirez 03/17/2013 Injection Injection Allergy Injection 03/17/2013 Injection Injection Truman Luis A Ramirez 03/10/2013 Injection Injection Allergy Injection 03/10/2013 Injection Injection Truman Luis A Ramirez 03/03/2013 Injection Injection Allergy Injection 03/03/2013 Injection Injection Truman Luis A Ramirez 02/24/2013 Injection Injection Allergy Injection 02/24/2013 Injection Injection Truman Ramirez M.D. 02/03/2013 Injection Injection Allergy Injection 02/03/2013 Injection Injection Truman James, M.D. 01/20/2013 Injection Injection Truman James, M.D. 01/13/2013 Injection Injection Truman James, M.D. 01/06/2013 Injection Injection Truman James, M.DRadha 12/30/2012 Injection Injection Truman James, M.DRadha 12/23/2012 Injection Injection Truman James, M.DRadha 12/16/2012 Injection Injection Truman James, M.DRadha 12/09/2012 Injection Injection Truman James, M.DRadha 12/02/2012 Injection Injection Truman James, M.DRadha 11/25/2012 Injection Injection Truman James, M.DRadha 11/18/2012 Injection Injection Truman James, M.DRadha 11/04/2012 Injection Injection Truman James, M.DRadha 10/21/2012 Injection Injection Truman James, M.DRadha 10/14/2012 Injection Injection Truman James, M.DRadha 09/30/2012 Injection Injection Truman James, M.DRadha 09/23/2012 Injection Injection Truman James, M.DRadha 08/26/2012 Injection Injection Truman James, M.DRadha 08/19/2012 Injection Injection Truman James, M.DRadha 08/12/2012 Injection Injection Truman James, M.DRadha 08/05/2012 Injection Injection Truman James, M.DRadha 07/29/2012 Injection Injection Truman James, M.DRadha 07/22/2012 Injection Injection Truman James, M.DRadha 07/15/2012 Injection Injection Truman James, M.DRadha 07/08/2012 Injection Injection Truman James, M.DRadha 07/01/2012 Injection Injection Truman James, M.DRadha 06/24/2012 Injection Injection Truman James, M.DRadha 06/10/2012 Injection Injection Truman James, M.DRadha 05/20/2012 Injection Injection Truman James, M.DRadha 05/06/2012 Injection Injection Truman James, M.DRadha 04/29/2012 Injection Injection Truman James, M.DRadha 04/22/2012 Injection Injection Truman James, M.D. 04/15/2012 Injection Injection Truman James, M.DRadha 04/08/2012 Injection Injection Truman James, M.DRadha 04/01/2012 Injection Injection Truman James, M.D. 03/25/2012 Injection Injection Truman James, M.D. 03/18/2012 Injection Injection Truman James, M.DRadha 03/11/2012 Injection Injection Truman James, M.DRadha 03/04/2012 Injection Injection Truman James, M.DRadha 02/19/2012 Injection Injection Truman James, M.DRadha 02/12/2012 Injection Injection Truman James, M.DRadha 01/29/2012 Injection Injection Truman James, M.DRadha 01/22/2012 Injection Injection Truman James, M.DRadha 01/13/2012 Injection Injection Truman James, M.DRadha 01/08/2012 Injection Injection Truman James, M.DRadha 01/01/2012 Injection Injection Truman James, M.DRadha 12/11/2011 Injection Injection Truman James, M.DRadha 11/27/2011 Injection Injection Truman James, M.DRadha 11/20/2011 Injection Injection Truman James, M.D. 11/13/2011 Injection Injection Truman James, M.D. 10/16/2011 Injection Injection Truman James, M.D. 10/02/2011 Injection Injection Truman James, M.D. 09/18/2011 Injection Injection Truman James, M.D. 09/11/2011 Injection Injection Truman James, M.D. 08/28/2011 Injection Injection Truman James, M.DRadha 08/21/2011 Injection Injection Truman James, M.DRadha 07/31/2011 Injection Injection Truman James, M.DRadha 07/24/2011 Injection Injection Truman James, M.DRadha 07/17/2011 Injection Injection Truman James, M.DRadha 07/10/2011 Injection Injection Truman James, M.DRadha 07/03/2011 Injection Injection Truman James, Luis A 06/26/2011 Injection Injection Truman James, MRadhaDRadha 06/19/2011 Injection Injection Truman James, M.DRadha 06/12/2011 Injection Celestone/Cortisone Truman James, M.DRadha 05/27/2011 [id number] 1 cc Injection Injection Truman James, MRadhaDRadha 05/13/2011 Injection Injection Truman James, M.DRadha 05/08/2011 Injection Injection Truman James, M.DRadha 04/29/2011 Injection Celestone/Cortisone Truman James, M.DRadha 04/17/2011 [id number] 1 cc Injection Injection Truman James, HarshadDRadha 04/03/2011 Injection Injection Truman James, HarshadDRadha 03/27/2011 Injection Injection Truman James, Luis A 03/20/2011 Injection Injection Truman James, Luis A 03/13/2011 Injection Injection Truman James, Luis A 03/06/2011 Injection Injection Truman James, HarshadDRadha 02/27/2011 Injection Injection Truman James, HarshadDRadha 02/20/2011 Injection Injection Truman James, HarshadDRadha 02/06/2011 Injection Injection Truman James, HarshadDRadha 01/23/2011 Injection Injection Truman James, HarshadDRadha 12/26/2010 Injection Injection Truman James, HarshadDRadha 12/05/2010 Injection Injection Truman James, HarshadDRadha 11/21/2010 Injection Injection Truman James, M.DRadha 10/24/2010 Injection Injection Truman James, M.DRadha 10/03/2010 Injection Injection Truman James, HarshadDRadha 09/19/2010 Injection Injection Truman James, M.DRadha 09/05/2010 Injection Injection Truman James, M.DRadha 08/29/2010 Injection Injection Truman James, MRadhaDRadha 08/15/2010 Injection Injection Truman James, Luis A 08/08/2010 Injection Injection Truman James, MLuis Daniel 08/01/2010 Injection Injection Truman James, M.DRadha 07/18/2010 [...] James, M.DRadha 03/14/2010 Injection Injection Truman James, MRadhaDRadha 02/28/2010 Injection Injection Truman James, MRadhaDRadha 02/21/2010 Injection Injection Truman James, M.DRadha 02/14/2010 Injection Injection Truman James, M.DRadha 02/07/2010 Injection Injection Truman James, M.DRadha 01/31/2010 Injection Injection Truman James, M.DRadha 01/24/2010 Injection Injection Truman James, MRadhaDRadha 01/03/2010 Injection Injection Truman James, MRadhaDRadha 12/20/2009 Injection Injection Osman Monae, Luis A 12/06/2009 Injection Injection Osman Monae M.D. 11/29/2009 Injection Injection Truman James, Luis A 11/22/2009 Injection Injection Truman James, MLuis Daniel 10/18/2009 Injection Injection Truman James, M.D. 10/09/2009 Injection Injection Truman James, M.D. 09/27/2009 Injection Injection Truman James, M.D. 09/13/2009 Injection Injection Truman James, M.D. 09/06/2009 Injection Injection Truman James, M.D. 08/30/2009 Injection Injection Truman James, M.D. 08/23/2009 Injection Injection Truman James, M.D. 08/14/2009 Injection Injection Truman James, M.D. 08/09/2009 Injection Injection Truman James, M.DRadha 08/02/2009 Injection Injection Truman James, M.DRadha 07/26/2009 Injection Injection Truman James, M.DRadha 07/19/2009 Injection Injection Truman James, M.DRadha 07/12/2009 Injection Injection Truman James, M.DRadha 07/05/2009 Injection Injection Truman James, M.DRadha 07/03/2009 Injection Injection Truman James, M.D. 06/28/2009 Injection Injection Truman James, M.D. 06/21/2009 Injection Injection Truman James, M.DRadha 05/29/2009 Injection Injection Truman James, M.DRadha 05/10/2009 Injection Injection Truman James, M.DRadha 04/19/2009 Injection Injection Truman James, M.D. 04/05/2009 Injection Injection Truman James, M.D. 03/22/2009 Injection Injection Truman James, M.D. 03/08/2009 Injection Injection Truman James, M.D. 02/13/2009 Injection Injection Truman James, M.DRadha 01/30/2009 Injection Injection Truman James, M.D. 01/09/2009 Injection Injection Truman James, M.D. 12/26/2008 Injection Injection Truman James, M.D. 12/12/2008 Injection Injection Truman James, M.D. 11/28/2008 Injection Injection Truman James, M.D. 11/14/2008 Injection Injection Truman James, M.D. 10/17/2008 Injection Injection Truman James, M.DRadha 10/05/2008 Injection Injection Truman James, M.DRadha 09/19/2008 Injection Injection Truman James, M.DRadha 09/05/2008 Injection Injection Truman James, M.DRadha 08/22/2008 Injection Injection Truman James, M.DRadha 08/08/2008 Injection Injection Truman James, M.Praveen 07/25/2008 Injection Injection Truman James, Maureen.Praveen 07/11/2008 Injection Injection Truman James, Maureen.Praveen 06/29/2008 Injection Injection Truman James, M.DRadha 06/15/2008 Injection Injection Truman James, Maureen.Praveen 06/01/2008 Injection Injection Truman James, Maureen.Praveen 05/16/2008 Injection Injection Truman James, Maureen.DRadha 05/04/2008 Injection Injection Truman James, Luis A 04/20/2008 Injection Injection Truman James, Luis A 03/30/2008 Injection Injection Truman James, Maureen.Praveen 03/16/2008 Injection Injection Truman James, Maureen.DRadha 02/22/2008 Injection Injection Truman James, Maureen.DRadha 01/13/2008 Injection Injection Truman James, Maureen.DRadha 12/28/2007 Injection Injection Truman James, Maureen.DRadha 11/11/2007 Injection Injection Truman James, Maureen.Praveen 10/21/2007 Injection Injection Truman James, Maureen.Praveen 09/23/2007 Injection Injection Truman James, M.DRadha 08/26/2007 Injection Injection Truman James, M.DRadha 08/12/2007 Injection Injection Truman James, M.DRadha 07/29/2007 Injection Injection Truman James, M.DRadha 07/13/2007 Injection Injection Truman James, M.DRadha 07/01/2007 Injection Injection Truman James, M.DRadha 06/10/2007 Injection Injection Truman James, Maureen.Praveen 05/27/2007 Injection Injection Truman James, M.DRadha 05/13/2007 Injection Injection Truman James, Maureen.DRadha 04/22/2007 Injection Injection Truman James, M.DRadha 04/08/2007 Injection Injection Truman James, M.DRadha 03/18/2007 Injection Injection Truman James, M.DRadha 03/02/2007 Injection Injection Truman James, M.DRadha 02/11/2007 Injection Injection Truman James, Maureen.DRadha 01/12/2007 Injection Injection Truman James, M.DRadha 12/29/2006 Injection Injection Truman James, M.DRadha 12/15/2006 Injection Injection Truman James, M.DRadha 12/03/2006 Injection Injection Truman James, M.DRadha 11/19/2006 Injection Injection Truman James, Maureen.DRadha 11/03/2006 Injection Injection Truman James, HarshadDRadha 10/22/2006 Injection Injection Truman James, Luis A 10/06/2006 Injection Injection Truman James, HarshadDRadha 09/24/2006 Injection Injection Truman James, Maureen.DRadha 09/15/2006 Injection Injection Truman James, M.DRadha 08/27/2006 Injection Injection Truman James, Maureen.DRadha 08/13/2006 Injection Injection Truman James, HarshadDRadha 07/30/2006 Injection Injection Truman James, HarshadDRadha 07/14/2006 Injection Injection Truman James, Maureen.DRadha 07/02/2006 Injection Injection Truman James, HarshadDRadha 06/04/2006 Injection Injection Truman James, M.DRadha 05/26/2006 Injection Injection Truman James, Maureen.DRadha 05/07/2006 Injection Injection Truman James, M.DRadha 04/21/2006 Injection Injection Truman James, M.DRadha 04/09/2006 Injection Injection Truman James, Maureen.DRadha 03/31/2006 Injection Injection Truman James, M.DRadha 03/12/2006 Injection Injection Truman James, M.DRadha 03/03/2006 Injection Injection Truman James, HarshadDRadha 02/17/2006 Injection Injection Truman James, M.DRadha 02/12/2006 Injection Injection Truman James, M.D. 12/09/2005 Injection Injection Truman James, M.D. 11/20/2005 Injection Injection Truman James, M.D. 11/11/2005 Injection Injection Truman James, M.D. 11/04/2005 Injection Injection Truman James, M.D. 10/28/2005 Injection Injection Truman James, M.D. 10/23/2005 Injection Injection Truman James, M.D. 10/14/2005 Injection Injection Truman James, M.D. 10/07/2005 Injection Injection Truman James, M.DRadha 10/02/2005 Injection Injection Truman James, M.D. 09/25/2005 Injection Injection Truman James, M.D. 09/16/2005 Injection Injection Truman James, M.D. 09/11/2005 Injection Injection Truman James, M.D. 09/04/2005 Injection Injection Truman James, M.D. 08/28/2005 Injection Injection Truman James, M.D. 08/19/2005 Injection Injection Truman James, M.D. 08/12/2005 Injection Injection Truman James, M.D. 08/05/2005 Injection Injection Truman James, M.D. 07/29/2005 Injection Injection Truman James, M.D. 07/17/2005 Injection Injection Truman James, M.D. 03/27/2005 Injection Injection Truman James, M.D. 03/04/2005 Injection Injection Truman James, M.D. 12/03/2004 Injection Injection Truman James, M.D. 11/14/2004 Injection Injection Truman Jmaes, M.DRadha 11/05/2004 Injection Injection Truman James, M.D. 10/29/2004 Injection Injection Trmuan James, M.D. 10/17/2004 Injection Injection Truman James, M.D. 09/26/2004 Injection Injection Truman James, M.D. 09/03/2004 Injection Injection Truman James, M.D. 08/13/2004 Injection Injection Truman James, M.D. 07/23/2004 Injection Injection Truman James, M.D. 07/02/2004 Injection Injection Truman James, M.D. 06/06/2004 Injection Injection Truman James, M.D. 05/21/2004 Injection Injection Truman James, M.D. 05/14/2004 Injection Injection Truman James, M.DRadha 04/30/2004 Injection Injection Truman James, M.DRadha 04/11/2004 Injection Injection Truman James, M.DRadha 04/04/2004 Injection Injection Truman James, M.DRadha 03/14/2004 Injection Injection Truman James, M.DRadha 03/07/2004 Injection Injection Truman James, M.DRadha 02/29/2004 Injection Injection Truman James, M.DRadha 02/22/2004 Injection Injection Truman James, Maureen.DRadha 10/31/2003 Injection Injection Truman James, Maureen.DRadha 10/24/2003 Injection Injection Truman James, M.DRadha 10/10/2003 Injection Injection Truman James, M.DRadha 10/03/2003 Injection Injection Truman James, M.D. 09/19/2003 Injection Injection Truman James, M.D. 09/12/2003 Injection Injection Truman James, M.DRadha 09/05/2003 Injection Injection Truman James, M.DRadha 08/15/2003 Injection Injection Truman James, M.DRadha 08/08/2003 Injection Injection Truman James, M.DRadha 08/01/2003 Injection Injection Truman James, M.DRadha 07/25/2003 Injection Injection Truman James, M.DRadha 07/13/2003 Injection Injection Truman James, M.DRadha 06/29/2003 Injection Injection Truman James, M.D. 06/22/2003 Injection Injection Truman James, M.DRadha 06/15/2003 Injection Injection Truman James, M.D. 06/13/2003 Injection Immunizations CPT Code Status Date Vaccine Lot # 52351 Given 09/15/2014 Influenza Vaccine 81046 Given Unknown Pneumococcal Vaccine 14744 Given Unknown Pneumococcal Vaccine 93836 Given Unknown Pneumococcal Vaccine 52662 Given Unknown Influenza Vaccine 13486 Given Unknown Influenza Vaccine 20560 Given Unknown Influenza Vaccine Vital Signs Date Vital Result Comment 09/29/2019 11:38am Height 60 inches 5'0" Weight 169.00 lb Weight 76.658 kg Respiratory Rate 20 /min Heart Rate 83 /min O2 % BldC Oximetry 95 % BP Systolic 138 mmHg manual BP Diastolic 80 mmHg manual BMI (Body Mass Index) 33.0 kg/m2 09/08/2019 11:21am Height 60 inches 5'0" Weight 169.00 lb Weight 76.658 kg Respiratory Rate 20 /min Heart Rate 85 /min O2 % BldC Oximetry 92 % BP Systolic 161 mmHg BP Diastolic 94 mmHg Asthma Control Test 15 Fractional Exhaled Nitric Oxide 16 BMI (Body Mass Index) 33.0 kg/m2 Results Description No Information Available Procedures Date Code Description Status 09/29/2019 47991 Injection Completed 09/29/2019 92034 Pre PFT Completed 09/08/2019 40241 Ippb Completed 09/08/2019 69460 Pre PFT Completed 09/01/2019 89607 Injection Completed 07/07/2019 81895 Injection Completed 06/02/2019 57376 Injection Completed 05/12/2019 49286 Injection Completed 04/21/2019 04977 Injection Completed 04/21/2019 00752 Pre PFT Completed 04/14/2019 98498 Injection Completed Medical Devices Description No Information Available Encounters Type Date Location Provider Dx Diagnosis Office Visit 09/29/2019 [facility] Rosangela Valdez30.1 Allergic rhinitis 11:40a HOT ROLL LAMINATOR-C due to pollen J30.81 Allergic rhinitis due to animal (cat) (dog) hair and dander J01.00 Acute maxillary sinusitis, unspecified J45.40 Moderate persistent asthma, uncomplicated Office Visit 09/08/2019 11:40a [facility] Mildred Rousseau J01.00 Acute maxillary HOT ROLL LAMINATOR-C sinusitis, unspecified R05 Cough J45.41 Moderate persistent asthma with (acute) exacerbation Office Visit 04/21/2019 11:00a [facility] Rosangela Valdez30.1 Allergic HOT ROLL LAMINATOR-C rhinitis due to pollen J30.81 Allergic rhinitis due to animal (cat) (dog) hair and dander J45.40 Moderate persistent asthma, uncomplicated Assessments Date Code Description Provider 09/29/2019 J30.1 Allergic rhinitis due to pollen Nicanor Cui M.D. 09/29/2019 J30.1 Allergic rhinitis due to pollen MC Valdez 09/29/2019 J30.1 Allergic rhinitis due to pollen Nicanor Cui M.D. 09/29/2019 J30.81 Allergic rhinitis due to animal (cat) Nicanor Cui M.D. (dog) hair and dander 09/29/2019 J30.81 Allergic rhinitis due to animal (cat) MC Valdez (dog) hair and dander 09/29/2019 J30.1 Allergic rhinitis due to pollen Allergy Injection 09/29/2019 J01.00 Acute maxillary sinusitis, unspecified Nicanor Cui M.D. 09/29/2019 J01.00 Acute maxillary sinusitis, unspecified PABLO Valdez 09/29/2019 J30.2 Other seasonal allergic rhinitis Nicanor Cui M.D. 09/29/2019 J45.40 Moderate persistent asthma, uncomplicated Nicanor Cui M.D. 09/29/2019 J45.40 Moderate persistent asthma, uncomplicated MC Valdez 09/29/2019 J30.2 Other seasonal allergic rhinitis Allergy Injection 09/29/2019 J30.81 Allergic rhinitis due to animal (cat) Nicanor Cui M.D. (dog) hair and dander 09/29/2019 J30.81 Allergic rhinitis due to animal (cat) Allergy Injection (dog) hair and dander 09/29/2019 J30.89 Other allergic rhinitis Nicanor Cui M.D. 09/29/2019 J30.89 Other allergic rhinitis Allergy Injection 09/08/2019 J45.41 Moderate persistent asthma with (acute) Colby Villagran M.D. exacerbation 09/08/2019 J01.00 Acute maxillary sinusitis, unspecified Nicanor Ciu M.D. 09/08/2019 R05 Cough Colby Villagran M.D. 09/08/2019 J01.00 Acute maxillary sinusitis, unspecified PABLO Valdez 09/08/2019 R05 Cough Nicanor Cui M.D. 09/08/2019 R05 Cough MC Valdez 09/08/2019 J45.41 Moderate persistent asthma with (acute) Nicanor Cui M.D. exacerbation 09/08/2019 J45.41 Moderate persistent asthma with (acute) [...] 04/14/2019 J30.89 Other allergic rhinitis Allergy Injection Plan of Treatment No Information Available Functional Status Description No Information Available Mental Status Description No Information Available Referrals Description No Information Available
[2019-11-14 11:55] VITALS: BP 129/76
--- NOTE | 2019-11-14 13:14 | ED ---
Respiratory - HPI Summary HPI Summary: 74 yr old female with the complaint of runny nose, cough. Onset yesterday. No fever or chills. No vomiting. She is coughing up green sputum. Her symptoms are moderate. She has no shortness of breath. - History of Current Complaint Chief Complaint: UCGeneralIllness Stated Complaint: CHEST CONGESTION,LOSING VOICE Time Seen by Provider: 11/14/19 12:35 Pain Intensity: 5 - Allergy/Home Medications Allergies/Adverse Reactions: Allergies Allergy/AdvReac Type Severity Reaction Status Date / Time amoxicillin Allergy Unknown Verified 11/14/19 11:49 Reaction Details codeine Allergy Unknown Verified 11/14/19 11:49 Reaction Details erythromycin base Allergy Unknown Verified 11/14/19 11:49 Reaction Details meperidine [From Demerol] Allergy Unknown Verified 11/14/19 11:49 Reaction Details mercury (elemental) Allergy Unknown Verified 11/14/19 11:49 Reaction Details morphine Allergy Unknown Verified 11/14/19 11:49 Reaction Details Sulfa (Sulfonamide Allergy Unknown Verified 11/14/19 11:49 Antibiotics) Reaction Details Home Medications: Home Medications Atorvastatin* [Lipitor*] 40 mg PO DAILY 11/14/19 [History Confirmed 11/14/19] Fluticasone/Vilanterol [Breo Ellipta 200-25 Mcg INH] 1 each IH BID 11/14/19 [ History Confirmed 11/14/19] Metoprolol Tartrate 25 mg PO BID 11/14/19 [History Confirmed 11/14/19] Primidone 25 mg PO DAILY 11/14/19 [History Confirmed 11/14/19] PMH/Surg Hx/FS Hx/Imm Hx Endocrine/Hematology History: Reports: Hx Thyroid Disease - hypo Denies: Hx Diabetes Cardiovascular History: Reports: Hx Hypertension Denies: Hx Congestive Heart Failure Comment Only: Other Cardiovascular Problems/Disorders - COUGH FOR 10 DAYS Respiratory History: Reports: Hx Asthma Denies: Hx Chronic Obstructive Pulmonary Disease (COPD) GI History: Denies: Hx Ulcer - Surgical History Surgery Procedure, Year, and Place: hysterectomy, overectomy, sinus, carpal tunnel, fusion of 4,5,6 vert, breast reduction, rotator cuff repair Infectious Disease History: No Infectious Disease History: Denies: Hx Clostridium Difficile, Hx Hepatitis, Hx Human Immunodeficiency Virus (HIV), Hx of Known/Suspected MRSA, Hx Shingles, Hx Tuberculosis, Hx Known/ Suspected VRE, Hx Known/Suspected VRSA, History Other Infectious Disease, Traveled Outside the [place] in Last 30 Days - Family History Known Family History: Positive: None - Social History Alcohol Use: None Substance Use Type: Reports: None Smoking Status (MU): Never Smoked Tobacco Review of Systems Constitutional: Negative Positive: Nasal Discharge Positive: Cough All Other Systems Reviewed And Are Negative: Yes Physical Exam Triage Information Reviewed: Yes Vital Signs On Initial Exam: Initial Vitals Temp Pulse Resp BP Pulse Ox 98.3 F 85 18 129/76 95 11/14/19 11:50 11/14/19 11:50 11/14/19 11:50 11/14/19 11:50 11/14/19 11:50 Vital Signs Reviewed: Yes Appearance: Positive: Well-Appearing, No Pain Distress Skin: Positive: Warm, Skin Color Reflects Adequate Perfusion Head/Face: Positive: Normal Head/Face Inspection Eyes: Positive: EOMI ENT: Positive: Nasal congestion. Negative: Sinus tenderness Neck: Positive: Nontender Respiratory/Lung Sounds: Positive: Clear to Auscultation, Breath Sounds Present Cardiovascular: Positive: RRR. Negative: Murmur Abdomen Description: Negative: Distended Musculoskeletal: Positive: Strength/ROM Intact Neurological: Positive: Sensory/Motor Intact, Alert, Oriented to Person Place, Time, CN Intact II-III, Normal Gait, Speech Normal Psychiatric: Positive: Normal Diagnostics - Vital Signs Vital Signs Temp Pulse Resp BP Pulse Ox 11/14/19 11:50 98.3 F 85 18 129/76 95 - Laboratory Lab Statement: Any lab studies that have been ordered have been reviewed, and results considered in the medical decision making process. - Radiology chest pa lat Radiology Interpretation Completed By: Radiologist - hiatal hernia. Disposition - Course Course Of Treatment: 74 yr old female with hiatal hernia on chest xray. No pneumonia. Referral back to her PMD for follow up. - Diagnoses Provider Diagnoses: Hiatal hernia, Upper respiratory infection Discharge ED - Sign-Out/Discharge Documenting (check all that apply): Patient Departure All imaging exams completed and their final reports reviewed: No Studies - Discharge Plan Condition: Good Disposition: HOME Patient Education Materials: Upper Respiratory Infection (ED) Referrals: Munira Ornelas DO [Primary Care Provider] - 2 Days - Billing Disposition and Condition Condition: GOOD Disposition: Home
== END 2019-11-14 13:38 | disposition home or self-care (01) ==
LOC: UCCORT 11:13
DX: J06.9 Acute upper respiratory infection, unspecified (principal); K44.9 Diaphragmatic hernia without obstruction or gangrene; I10 Essential (primary) hypertension; Z79.899 Other long term (current) drug therapy; Z88.2 Allergy status to sulfonamides; Z88.5 Allergy status to narcotic agent; Z91.09 Other allergy status, other than to drugs and biological substances; Z88.1 Allergy status to other antibiotic agents; Z88.0 Allergy status to penicillin
CPT/HCPCS: 71046; 99212; G0463